=== PATIENT | female | born 1970 | race Caucasian/White ===

== ENCOUNTER → 2017-03-04 | Outpatient (CLI) | payer OTHER ==
[2017-03-04 14:09] LABS: Basophils # (A) 0.1 k/uL (0-0.2); Basophils % (A) 1 %; CH 27.3; CHCM 31.9; Eosinophils # (A) 0.2 k/uL (0-0.7); Eosinophils % (A) 2 %; HCT 47.4 % (34.0-46.0); HGB 15.2 gm/dL (11.4-16.0); Luc # (Auto) 0.16; Luc % (Auto) 2; Lymphocytes # (A) 3.9 k/uL (1.0-4.8); Lymphocytes % (A) 43 %; MCH 27.7 pg (25.0-35.0); MCHC 32.1 g/dL (31.0-37.0); Mean Platelet Volume 7.8; Monocytes # (A) 0.5 k/uL (0-1.0); Monocytes % (A) 5 %; Neutrophils # (A) 4.4 k/uL (1.3-7.7); Neutrophils % (A) 47 %; RBC 5.51 m/uL (3.80-5.40); RDW 14.2 % (11.5-15.5); WBC 9.2 k/uL (3.8-10.6); WBC (Perox) 8.98
[2017-03-04 14:17] LABS: ALT 27 U/L (9-52); AST 22 U/L (14-36); Alkaline Phosphatase 112 U/L (38-126); Anion Gap 11 mmol/L; Blood Urea Nitrogen 14 mg/dL (7-17); Calcium 9.9 mg/dL (8.4-10.2); Carbon Dioxide 28 mmol/L (22-30); Chloride 103 mmol/L (98-107); Cholesterol 173 mg/dL (<200); Glucose 97 mg/dL (74-99); HDL Cholesterol 72 mg/dL (40-60); Non-African American GFR(MDRD) >60 (>60 ml/min/1.73 sqM); Potassium 4.1 mmol/L (3.5-5.1); Sodium 142 mmol/L (137-145); Total Bilirubin 0.3 mg/dL (0.2-1.3); Total Protein 8.3 g/dL (6.3-8.2)
--- NOTE | 2017-03-17 10:01 | MM ---
Reason for exam: screening (asymptomatic). Last mammogram was performed 2 years and 7 months ago. History: Patient is postmenopausal and has history of other cancer at age 24. Family history of breast cancer in mother at age 60 and breast cancer in paternal grandmother at age 68. Physical Findings: A clinical breast exam by your physician is recommended on an annual basis and results should be correlated with mammographic findings. MG 3D Screening Mammo W/Cad Bilateral CC and MLO view(s) were taken. Prior study comparison: August 11, 2014, mammogram, performed at [facility]. No significant changes when compared with prior studies. ASSESSMENT: Benign, BI-RAD 2 RECOMMENDATION: Routine screening mammogram of both breasts in 1 year.
== END | disposition home or self-care (01) ==
LOC: RADMAMWWP 13:05
PROVIDERS: ATTEND Family Medicine
DX: Z12.31 Encounter for screening mammogram for malignant neoplasm of breast (principal); Z00.00 Encounter for general adult medical examination without abnormal findings; E55.9 Vitamin D deficiency, unspecified
CPT/HCPCS: 80061; 80053; 84443; 85025; 82306; 77063; 36415; G0202

== ENCOUNTER → 2021-07-03 | Outpatient (CLI) | payer OTHER ==
--- NOTE | 2021-07-03 15:12 | XR ---
Lumbar spine HISTORY: Low back pain 3 views the lumbar spine Lumbar vertebral bodies show preserved height, alignment, bone mineralization. Disc spaces show heigh t loss L5-S1 with associated spondylosis. Sclerosis is present in the posterior elements. IMPRESSION: Degenerative disc disease and facet arthropathy.
== END | disposition home or self-care (01) ==
LOC: RADXRMAIN 14:20
PROVIDERS: ATTEND Family Medicine
DX: M47.816 Spondylosis without myelopathy or radiculopathy, lumbar region (principal); M51.36 Other intervertebral disc degeneration, lumbar region
CPT/HCPCS: 72100